=== PATIENT | male | born 1935 | race Caucasian/White ===

== ENCOUNTER 2017-04-12 18:59 | Inpatient (IN) | payer OTHER, BC ==
[~2017-04-12] VITALS: Ht 170.2 cm; Wt 80.2 kg
[~2017-04-12 18:59] MED LIST: ARICEPT5 MG PO; ASPIRIN325 MG PO; ASPIRIN81 M1 PO; Aspirin PO; BABY ASPIRIN81 M1 PO; CEPHALEXIN500 MG PO; CHAMOMILE PO; CYANOCOBALAM1000 MCG PO; Ecotrin PO; FISH OIL 1,0001 EAC7 PO; FOCUS FACTOR PO; Flomax PO; LASIX20 MG PO; LIPITOR40 MG PO; LOPRESSOR50 MG PO; LORATADINE10 M2 PO; METOPROLOL TAR100 MG PO; OSTEO BI-FLEX1 EAC2 PO; PROTONIX40 MG PO; TOPROL XL6.25 MG PO; TYLENOL REGULA325 MG PO; VASOTEC20 MG PO; VITAMIN C1000 MG PO; VITAMIN D32000 UNI1 PO; VYTORIN 10/41 TABLET PO; Vasotec PO; Vitamin D PO
[2017-04-12 19:32] LABS: HEMATOCRIT 35.9 % (38.0-50.0); MCH 30.8 PG (29.0-34.0); MCV 90.7 FL (86-99); MEAN PLAT.VOLUME 11.8 uM^3 (9.0-12.4); PLATELET COUNT 113 K/uL (156-360); RBC DIS.WIDTH-CV 13.1 % (11.8-14.6); RBC DIS.WIDTH-SD 42.5 % (39-53); RED BLOOD COUNT 3.96 M/uL (4.00-5.50); WHITE BLOOD COUNT 9.5 K/uL (4.1-10.2)
[2017-04-12 19:41] LABS: CHLORIDE 108 mEq/L (99-109); INTER. NORMALIZED RATIO 1.2; POTASSIUM 4.8 mEq/L (3.7-5.4); PROTHROMBIN TIME 12.7 SEC (10.2-12.9); SODIUM 142 mEq/L (136-147)
[2017-04-12 19:43] LABS: GLUCOSE 105 mg/dL (70-99); PTT 42.7 SEC (25-37)
[2017-04-12 19:44] LABS: ANION GAP 14 MEQ/L (2-14)
[2017-04-12 19:46] LABS: GFR ESTIMATE (CALCULATED) 16 mL/min/
[2017-04-12 19:47] LABS: UREA NITROGEN (BUN) 52 mg/dL (9-23)
[2017-04-12 19:53] LABS: TROP-I INTERPRETATION NEGATIVE; TROPONIN-I < 0.01 ng/mL (0.0-0.30)
[2017-04-12] MEDS ORDERED: NORVASC5 MG PO (20:46)
[2017-04-12] MEDS ORDERED: LO-DOSE ASPIRIN81 M2 PO (20:47)
[2017-04-12] MEDS ORDERED: GLIPIZIDE5 MG PO (20:48)
[2017-04-12] MEDS ORDERED: IMODIUM A-D2 M2 PO (20:49)
[2017-04-12] MEDS ORDERED: JANUVIA25 M1 PO (20:50)
[2017-04-12] MEDS ORDERED: INDOCIN25 MG PO (20:50)
[2017-04-12] MEDS ORDERED: LASIX40 MG PO (20:51)
[2017-04-12] MEDS ORDERED: LIPITOR20 MG PO (20:51)
[2017-04-12] MEDS ORDERED: GLUCOPHAGE1000 MG PO (20:52)
[2017-04-12] MEDS ORDERED: MICRO-K10 ME2 PO (20:54)
[2017-04-12] MEDS ORDERED: ALLOPURINOL100 MG PO (20:56)
[2017-04-12] MEDS ORDERED: DULCOLAX10 MG PR (21:00)
[2017-04-12] MEDS ORDERED: FLEET ENEMA EX230 ML PR (21:01)
[2017-04-12] MEDS ORDERED: MILK OF MAGN PO (21:01)
[2017-04-12] MEDS ORDERED: REFRESH CONTACT12 ML BOTH EYES (21:02)
[2017-04-12] MEDS ORDERED: SILVADENE20 GM TP (21:05)
[2017-04-12 21:57] VITALS: BP 114/70
[2017-04-13 03:26] VITALS: BP 132/67
[2017-04-13 07:09] LABS: MCH 31.4 PG (29.0-34.0); MCHC 32.6 G/DL (30.0-36.0); MEAN PLAT.VOLUME 13.2 uM^3 (9.0-12.4); PLATELET COUNT 108 K/uL (156-360); RBC DIS.WIDTH-CV 13.4 % (11.8-14.6); RED BLOOD COUNT 3.54 M/uL (4.00-5.50); WHITE BLOOD COUNT 7.6 K/uL (4.1-10.2)
[2017-04-13 07:31] LABS: ALKALINE PHOSPHATASE 108 IU/L (3-129); ANION GAP 13 MEQ/L (2-14); CHLORIDE 108 MEQ/L (99-109); GFR ESTIMATE (CALCULATED) 21 mL/min/; GLUCOSE 109 mg/dL (70-99); HDL CHOLESTEROL 29 MG/DL (Desirable>=40); LDL CHOLESTEROL 99 mg/dL (Desirable<100); NON-HDL CHOLESTEROL 150 mg/dL (Desirable<160); POTASSIUM 4.3 MEQ/L (3.7-5.4); SAMPLE HEMOLYSIS CHECK 0; SAMPLE ICTERIC CHECK 0; SAMPLE LIPEMIA CHECK 0; SODIUM 143 MEQ/L (136-147); TOTAL BILIRUBIN 0.9 MG/DL (0.0-1.0); TOTAL CHOLESTEROL 179 mg/dL (Desirable<200); TRIGLYCERIDES 257 MG/DL (Normal: <150); UREA NITROGEN (BUN) 47 mg/dL (9-23)
[2017-04-13 07:36] VITALS: BP 106/63
[2017-04-13 11:28] VITALS: BP 146/77
[2017-04-13 15:57] VITALS: BP 138/67
[2017-04-13 19:52] VITALS: BP 142/71
[2017-04-14 04:02] VITALS: BP 141/69
[2017-04-14 06:30] LABS: HEMATOCRIT 32.6 % (38.0-50.0); MCH 30.5 PG (29.0-34.0); MCHC 32.2 G/DL (30.0-36.0); MCV 94.8 FL (86-99); MEAN PLAT.VOLUME 12.8 uM^3 (9.0-12.4); PLATELET COUNT 107 K/uL (156-360); RBC DIS.WIDTH-CV 13.8 % (11.8-14.6); RBC DIS.WIDTH-SD 46.7 % (39-53); RED BLOOD COUNT 3.44 M/uL (4.00-5.50); WHITE BLOOD COUNT 6.8 K/uL (4.1-10.2)
[2017-04-14 06:59] LABS: ANION GAP 12 MEQ/L (2-14); CHLORIDE 116 MEQ/L (99-109); GFR ESTIMATE (CALCULATED) 34 mL/min/; GLUCOSE 119 mg/dL (70-99); POTASSIUM 4.2 MEQ/L (3.7-5.4); SAMPLE HEMOLYSIS CHECK 0; SAMPLE ICTERIC CHECK 0; SAMPLE LIPEMIA CHECK 0; SODIUM 148 MEQ/L (136-147); UREA NITROGEN (BUN) 30 mg/dL (9-23)
[2017-04-14 07:20] VITALS: BP 146/72
[2017-04-14 11:45] VITALS: BP 144/67
[2017-04-14 16:16] VITALS: BP 135/64
[2017-04-14 20:00] VITALS: BP 149/76
[2017-04-15] VITALS: BP 132/67
[2017-04-15 03:56] VITALS: BP 142/70
[2017-04-15 06:20] LABS: HEMATOCRIT 31.7 % (38.0-50.0); MCH 30.6 PG (29.0-34.0); MCHC 32.5 G/DL (30.0-36.0); MCV 94.1 FL (86-99); MEAN PLAT.VOLUME 12.2 uM^3 (9.0-12.4); PLATELET COUNT 109 K/uL (156-360); RBC DIS.WIDTH-CV 13.6 % (11.8-14.6); RBC DIS.WIDTH-SD 46.7 % (39-53); RED BLOOD COUNT 3.37 M/uL (4.00-5.50); WHITE BLOOD COUNT 6.8 K/uL (4.1-10.2)
[2017-04-15 06:45] LABS: ANION GAP 11 MEQ/L (2-14); CHLORIDE 113 MEQ/L (99-109); GFR ESTIMATE (CALCULATED) 44 mL/min/; GLUCOSE 117 mg/dL (70-99); POTASSIUM 4.1 MEQ/L (3.7-5.4); SAMPLE HEMOLYSIS CHECK 0; SAMPLE ICTERIC CHECK 0; SAMPLE LIPEMIA CHECK 0; SODIUM 145 MEQ/L (136-147); UREA NITROGEN (BUN) 17 mg/dL (9-23)
[2017-04-15 07:13] VITALS: BP 152/70
[2017-04-15 11:45] VITALS: BP 116/62
[2017-04-15 15:51] VITALS: BP 131/64
[2017-04-15 15:53] VITALS: BP 131/64
== END 2017-04-15 19:00 | DRG 64 ==
LOC: EME 18:59 → EDOF 20:57 → 5SOUTH 20:57 → ENRESERV 21:00 → 5SOUTH 21:46
PROVIDERS: Emergency Medicine; Family Medicine; Internal Medicine Nephrology
DX: I63.9 Cerebral infarction, unspecified (principal); J18.9 Pneumonia, unspecified organism; N17.9 Acute kidney failure, unspecified; E86.0 Dehydration; I12.9 Hypertensive chronic kidney disease with stage 1 through stage 4 chronic kidney disease, or unspecified chronic kidney disease; E11.22 Type 2 diabetes mellitus with diabetic chronic kidney disease; N18.9 Chronic kidney disease, unspecified; R55 Syncope and collapse; E78.5 Hyperlipidemia, unspecified; K21.9 Gastro-esophageal reflux disease without esophagitis; I25.10 Atherosclerotic heart disease of native coronary artery without angina pectoris; R29.6 Repeated falls; N40.0 Benign prostatic hyperplasia without lower urinary tract symptoms; F03.90 Unspecified dementia, unspecified severity, without behavioral disturbance, psychotic disturbance, mood disturbance, and anxiety; M19.90 Unspecified osteoarthritis, unspecified site; R32 Unspecified urinary incontinence; Z66 Do not resuscitate; Z95.1 Presence of aortocoronary bypass graft; Z85.828 Personal history of other malignant neoplasm of skin; Z86.73 Personal history of transient ischemic attack (TIA), and cerebral infarction without residual deficits; Z87.891 Personal history of nicotine dependence; Z96.652 Presence of left artificial knee joint
CPT/HCPCS: 70450; 71020; 76770; 80048; 80053; 80061; 80069; 81003; 82570; 83605; 84156; 84484; 85027; 85610; 85730; 87040; 87086; 92523 GN; 92610 GN; 93005; 93306; 93880; 94640; 94640 76; 94760; 94799; 99202; 99281; 99284; J0696; J7030; J7050

== ENCOUNTER → 2017-06-13 | Outpatient (CLI) | payer OTHER ==
[~2017-06-13] VITALS: Ht 162.6 cm; Wt 75.3 kg
[~2017-06-13] MED LIST changes: +ALLOPURINOL100 MG PO; +DULCOLAX10 MG PR; +FLEET ENEMA EX230 ML PR; +GLIPIZIDE5 MG PO; +GLUCOPHAGE1000 MG PO; +IMODIUM A-D2 M2 PO; +INDOCIN25 MG PO; +IRON325 M1 PO; +JANUVIA25 M1 PO; +LASIX40 MG PO; +LIPITOR20 MG PO; +LITE COAT ASPI325 M1 PO; -METOPROLOL TAR100 MG PO; +MICRO-K10 ME2 PO; +MILK OF MAGN PO; +NIZORAL SHAMPO120 ML TP; +NORVASC5 MG PO; +REFRESH CONTACT12 ML BOTH EYES; +REMERON15 M2 PO; +ROXICODONE5 MG PO; +SILVADENE20 GM TP; +TUMS500 MG PO
[2017-06-13 13:35] LABS: POINT-OF-CARE METER ID UU14107333
[2017-06-13 14:57] LABS: POINT-OF-CARE METER ID UU13113819
[2017-06-13 15:11] LABS: POINT-OF-CARE METER ID UU13113819
== END ==
LOC: AMB 12:37
PROVIDERS: Surgery
PROC: 0DH63UZ Insertion of Feeding Device into Stomach, Percutaneous Approach (ICD-10-PCS; principal; 2017-06-13)
DX: R13.10 Dysphagia, unspecified (principal); R62.7 Adult failure to thrive; E46 Unspecified protein-calorie malnutrition; I10 Essential (primary) hypertension; E11.9 Type 2 diabetes mellitus without complications; I25.10 Atherosclerotic heart disease of native coronary artery without angina pectoris; Z95.1 Presence of aortocoronary bypass graft; E78.5 Hyperlipidemia, unspecified; N28.9 Disorder of kidney and ureter, unspecified; Z86.73 Personal history of transient ischemic attack (TIA), and cerebral infarction without residual deficits; M19.90 Unspecified osteoarthritis, unspecified site; Z79.82 Long term (current) use of aspirin; Z80.3 Family history of malignant neoplasm of breast; Z82.49 Family history of ischemic heart disease and other diseases of the circulatory system; Z82.0 Family history of epilepsy and other diseases of the nervous system
CPT/HCPCS: 43760; 82948; J0690

== ENCOUNTER 2017-11-30 12:21 | Emergency (ER) | payer OTHER ==
[~2017-11-30] VITALS: Ht 185.4 cm; Wt 75.3 kg
[2017-11-30 15:41] VITALS: BP 121/79
== END 2017-11-30 16:23 ==
LOC: EME 12:21
PROC: 0D20XUZ Change Feeding Device in Upper Intestinal Tract, External Approach (ICD-10-PCS; principal; 2017-11-30)
DX: Z43.1 Encounter for attention to gastrostomy (principal); Z86.73 Personal history of transient ischemic attack (TIA), and cerebral infarction without residual deficits; Z95.1 Presence of aortocoronary bypass graft; Z96.652 Presence of left artificial knee joint; Z87.891 Personal history of nicotine dependence; Z88.1 Allergy status to other antibiotic agents
CPT/HCPCS: 74018; 99281; 99284

== ENCOUNTER 2017-12-30 09:06 | Emergency (ER) | payer OTHER ==
[~2017-12-30] VITALS: Ht 180.3 cm; Wt 76.3 kg
[2017-12-30 10:04] LABS: HEMOGLOBIN 12.4 G/DL (12.5-16.6); MCH 29.9 PG (29.0-34.0); MCHC 34.4 G/DL (30.0-36.0); MCV 86.7 FL (86-99); PLATELET COUNT 274 K/uL (156-360); RBC DIS.WIDTH-CV 14.6 % (11.8-14.6); RBC DIS.WIDTH-SD 46.6 % (39-53); RED BLOOD COUNT 4.15 M/uL (4.00-5.50); WHITE BLOOD COUNT 9.7 K/uL (4.1-10.2)
[2017-12-30 10:17] LABS: CHLORIDE 95 mEq/L (99-109); POTASSIUM 4.1 mEq/L (3.7-5.4)
[2017-12-30 10:18] LABS: SODIUM 135 mEq/L (136-147)
[2017-12-30 10:19] LABS: GLUCOSE 119 mg/dL (70-99)
[2017-12-30 10:23] LABS: CREATININE 1.1 mg/dL (0.6-1.3); GFR ESTIMATE (CALCULATED) > 59 mL/min/ (58.99-99999)
[2017-12-30 10:24] LABS: UREA NITROGEN (BUN) 38 mg/dL (9-23)
[2017-12-30 12:47] VITALS: BP 146/79
[2017-12-31] MEDS ORDERED: DUONEB 2.5-0.5 M3 ML AEROSOL (01:01)
== END 2017-12-30 12:51 ==
LOC: EME 09:06
PROVIDERS: Family Medicine
DX: Z43.1 Encounter for attention to gastrostomy (principal); T17.918A Gastric contents in respiratory tract, part unspecified causing other injury, initial encounter; X58.XXXA Exposure to other specified factors, initial encounter; F03.90 Unspecified dementia, unspecified severity, without behavioral disturbance, psychotic disturbance, mood disturbance, and anxiety; Z86.73 Personal history of transient ischemic attack (TIA), and cerebral infarction without residual deficits; I70.0 Atherosclerosis of aorta; I10 Essential (primary) hypertension; Z95.1 Presence of aortocoronary bypass graft; Z79.82 Long term (current) use of aspirin; Z79.84 Long term (current) use of oral hypoglycemic drugs; Z87.891 Personal history of nicotine dependence
CPT/HCPCS: 71045; 74018; 80048; 85027; 99281; 99284

== ENCOUNTER 2017-12-30 20:03 | Emergency (ER) | payer OTHER ==
[~2017-12-30] VITALS: Ht 167.6 cm; Wt 75.0 kg
[2017-12-30 21:44] LABS: HEMATOCRIT 33.8 % (38.0-50.0); HEMOGLOBIN 11.7 G/DL (12.5-16.6); MCH 30.1 PG (29.0-34.0); MCHC 34.6 G/DL (30.0-36.0); MCV 86.9 FL (86-99); PLATELET COUNT 281 K/uL (156-360); RBC DIS.WIDTH-CV 14.9 % (11.8-14.6); RBC DIS.WIDTH-SD 48.1 % (39-53); RED BLOOD COUNT 3.89 M/uL (4.00-5.50); WHITE BLOOD COUNT 10.9 K/uL (4.1-10.2)
[2017-12-30 21:59] LABS: ALBUMIN 3.7 g/dL (3.2-4.8)
[2017-12-30 22:00] LABS: CHLORIDE 96 mEq/L (99-109); POTASSIUM 4.2 mEq/L (3.7-5.4); SODIUM 133 mEq/L (136-147)
[2017-12-30 22:01] LABS: GLUCOSE 146 mg/dL (70-99)
[2017-12-30 22:02] LABS: TOTAL PROTEIN 7.3 g/dL (6.4-8.3)
[2017-12-30 22:03] LABS: TOTAL BILIRUBIN 0.6 mg/dL (0.0-1.0)
[2017-12-30 22:05] LABS: ALKALINE PHOSPHATASE 91 IU/L (3-129); CREATININE 1.3 mg/dL (0.6-1.3); GFR ESTIMATE (CALCULATED) 56 mL/min/ (58.99-99999)
[2017-12-30 22:06] LABS: UREA NITROGEN (BUN) 38 mg/dL (9-23)
[2017-12-30 22:07] LABS: AST (GOT) 25 IU/L (2-34)
[2017-12-30 22:08] LABS: ALT (GPT) 32 IU/L (3-49); LIPASE 13 U/L (1.0-51.0)
[2017-12-30 22:10] LABS: TROP-I INTERPRETATION NEGATIVE; TROPONIN-I 0.01 ng/mL (0.0-0.30)
[2017-12-30 22:33] LABS: APPEARANCE CLOUDY ((CLEAR)); BILIRUBIN NEGATIVE; BLOOD NEGATIVE; COLOR YELLOW ((YELLOW)); GLUCOSE (STRIP) NEGATIVE; KETONES NEGATIVE; LEUKOCYTES LARGE; NITRITE NEGATIVE; PROTEIN (STRIP) 30; SPECIFIC GRAVITY 1.015 (1.000-1.030); UROBILINOGEN 0.2 MG/DL (0.2-1.0)
[2017-12-30 22:38] LABS: RED BLOOD CELLS NONE SEEN /HPF (0-5); WHITE BLOOD CELLS TNTC /HPF (0-5)
[2017-12-30 22:40] LABS: AMORPHOUS PHOSPHATE CRYSTALS 3+; BACTERIA 2+ /HPF; EPITHELIAL CELLS 1+ /HPF; MUCUS NONE SEEN /LPF; TRIPLE PHOSPHATE CRYSTALS 2+ /HPF; UCUL ADDED? YES
[2017-12-31] MEDS ORDERED: DUONEB 2.5-0.5 M3 ML AEROSOL (01:01)
[2017-12-31 01:13] VITALS: BP 115/65
== END 2017-12-31 02:57 ==
LOC: EME 20:03
PROVIDERS: Emergency Medicine
DX: K56.41 Fecal impaction (principal); J18.9 Pneumonia, unspecified organism; K31.1 Adult hypertrophic pyloric stenosis; N28.1 Cyst of kidney, acquired; Z93.1 Gastrostomy status; K57.50 Diverticulosis of both small and large intestine without perforation or abscess without bleeding; R00.0 Tachycardia, unspecified; K76.89 Other specified diseases of liver; F03.90 Unspecified dementia, unspecified severity, without behavioral disturbance, psychotic disturbance, mood disturbance, and anxiety; I10 Essential (primary) hypertension; Z86.73 Personal history of transient ischemic attack (TIA), and cerebral infarction without residual deficits; Z95.1 Presence of aortocoronary bypass graft; Z79.82 Long term (current) use of aspirin; Z79.84 Long term (current) use of oral hypoglycemic drugs; Z87.891 Personal history of nicotine dependence
CPT/HCPCS: 71260; 74177; 80053; 81003; 83690; 84484; 85027; 93005; 94640; 99281; 99285; J7030